=== PATIENT | male | born 1950 | race Caucasian/White ===

== ENCOUNTER 2016-10-14 21:29 | Inpatient (IN) | payer MEDICARE, MEDICAID ==
[~2016-10-14] VITALS: Ht 185.4 cm; Wt 54.2 kg
[2016-10-14 21:34] VITALS: BP 117/78; PULSE 105; RESP 17; O2SAT 98
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
[2016-10-14] MEDS ORDERED: 0.9% Sodium Chloride 1,000 ML IV ONE (22:00)
[2016-10-14 22:11] LABS: BASOPHILS % (AUTO) 0.2 % (0-3); EOSINOPHILS % (AUTO) 0.2 % (0-5); MONOCYTES % (AUTO) 9.2 % (4-12); Mean Corpuscular Hemoglobin 31.6 pg (27.0-35.0); Mean Corpuscular Volume 89.8 fL (81-100); Platelet Count 385 bil/L (150-400)
[2016-10-14 22:32] LABS: ERYTHROCYTE SEDIMENTATION RATE 4 mm/hr (0-30)
[2016-10-14 22:34] VITALS: BP 110/78; PULSE 92; RESP 15; O2SAT 95
[2016-10-14 22:50] LABS: TROPONIN T 0.029 ug/L (0.0-0.011)
[2016-10-14 23:05] LABS: INR 0.96 ratio
[2016-10-14 23:12] LABS: Magnesium 1.1 mg/dL (1.6-2.6)
[2016-10-14] MEDS ORDERED: Magnesium Sulf 4 Gm/100 mL H2O 4 GM in IV Premix 1 EACH IV ONE (23:15)
[2016-10-14] MEDS ORDERED: Ketorolac 15 mg/mL Inj ONE (23:34)
[2016-10-15] VITALS (12 sets, daily range): BP systolic 81–117; BP diastolic 50–80; PULSE 60–96; RESP 15–20; O2SAT 92–100
[2016-10-15] MEDS ORDERED: Ondansetron 2 mg/mL 2 mL Inj IVPUSH PRN (01:40)
[2016-10-15] MEDS ORDERED: Polyethylene Glycol (PEG) 17 Gm Powder PO PRN (01:40)
[2016-10-15] MEDS: 0.9% Sodium Chloride 1,000 ML IV SCH ×2 (02:01→07:21)
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
--- NOTE | 2016-10-15 02:26 | NUR ---
ADMIT; 66 year old thin pale male to room 1024 via gurney from e.r. with c/o increased weakness which has been causing him to not be able to walk= crawling on floor to bathroom. See admit screens.
--- NOTE | 2016-10-15 02:28 | NUR ---
MED REC NOT DONE; Son in law states will bring in a copy of pt's home meds in the am. (list is at home in pts [facility])
[2016-10-15] MEDS ORDERED: Glucose 40% Oral Gel 15 Gm Tube PO PRN (02:35)
[2016-10-15] MEDS ORDERED: Dextrose 10% 250 ML IV PRN (03:05)
--- NOTE | 2016-10-15 03:18 | NUR ---
GI swallow eval done per this rn and charge nurse. Pt passed. Eating sandwich at this time without problems. Need to change diet from general to soft general as pt has no teeth.
--- NOTE | 2016-10-15 04:53 | NUR ---
GI/ACTIVITY; moderate soft brown bm per bsc. Stool spec collected to send to the lab. One assist to the [facility]. Legs weak.
--- NOTE | 2016-10-15 06:22 | DRSVH ---
PROCEDURE: CT BRAIN WITHOUT CONTRAST ([id number]) INDICATIONS: 66-year-old male with generalized weakness. TECHNIQUE: Noncontrast 4.5 mm thick angled axial sections acquired from the foramen magnum to the vertex, with c oronal reformats. COMPARISON: None. FINDINGS: Preliminary interpretation rendered by [facility]. Image quality: Excellent. CSF spaces: Basal cisterns are patent. No extra-axial fluid collections. Ventricles are normal in size and shape. Brain: No midline shift. No intracranial masses or hemorrhage. There is mild periventricular white matter chronic small vessel ischemic change. There is scattered intracranial internal carotid artery atherosclerosis. Skull and face: Calvarium and visualized facial bones are intact, without suspicious lesions. Sinuses: Visualized sinuses and mastoids are clear. IMPRESSION: No acute intracranial abnormalities. Mild periventricular white matter chronic small vess el ischemic change. No significant discrepancy with preliminary [facility] report. Dictated by: David Rodriguez M.D. on 10/15/2016 at 6:19 Approved by: David Rodriguez M.D. on 10/15/2016 at 6:21
--- NOTE | 2016-10-15 06:33 | NUR ---
PAIN; pt c/o sore neck and knees. Dr. Bryant "lindsay paged" and orders noted.
[2016-10-15 07:58] LABS: BASOPHILS % (AUTO) 0.3 % (0-3); EOSINOPHILS % (AUTO) 0.4 % (0-5); MONOCYTES % (AUTO) 9.2 % (4-12); Mean Corpuscular Hemoglobin 31.5 pg (27.0-35.0); Mean Corpuscular Volume 89.8 fL (81-100); NEUTROPHILS % (AUTO) 62.1 % (40-74); Platelet Count 381 bil/L (150-400)
[2016-10-15] MEDS: Insulin LISPRO 300 Unit/3 mL Inj SUBQ SCH ×4 (08:00→23:35)
--- NOTE | 2016-10-15 08:18 | DRSVH ---
PROCEDURE: X-RAY CHEST ONE VIEW, PORTABLE ([id number]) INDICATIONS: 66 year-old male with shortness of breath. TECHNIQUE: One view of the chest was acquired. COMPARISON: [facility], CHEST 1VW (PORTABLE), 05/20/2011, 19:22. [facility], CHEST 2VW, 03/20/2011, 14:46. [facility], CHEST 2VW, 03/29/2007, 16:46. FINDINGS: Surgical changes and devices: None. Lungs and pleura: No pleural effusions or pneumothorax. Lungs are clear. Mediastinum: Mediastinal contours appear normal. Heart size is normal. Bones and chest wall: No suspicious bony lesions. Nonacute left third through fifth rib fractures a re again noted. Overlying soft tissues appear unremarkable. IMPRESSION: No acute cardiopulmonary disease. Nonacute lateral left third through fifth rib fractures as before. Dictated by: David Rodriguez M.D. on 10/15/2016 at 8:16 Approved by: David Rodriguez M.D. on 10/15/2016 at 8:17
[2016-10-15] MEDS: Heparin 5,000 Unit/mL Inj SUBQ SCH ×2 (08:41→17:17)
[2016-10-15] MEDS: Pancrelipase 5,000 Unit Capsule PO SCH ×3 (08:42→17:16)
[2016-10-15] MEDS: Pantoprazole 20 mg ER24 Tablet PO SCH (08:42)
[2016-10-15 08:44] LABS: Magnesium 2.2 mg/dL (1.6-2.6)
--- NOTE | 2016-10-15 10:15 | DRSVH ---
PROCEDURE: CT ABDOMEN AND PELVIS WITH CONTRAST ([id number]) INDICATIONS: 66 year-old male with malnutrition and chronic pancreatitis. TECHNIQUE: After the administration of oral and intravenous contrast, 5 mm thick sections acquired from the diap hragms to the symphysis. 5 mm thick coronal and sagittal reformats were performed. For radiation do se reduction, the following was used: automated exposure control, adjustment of mA and/or kV accordi ng to patient size. COMPARISON: None. FINDINGS: Image quality: Excellent. ABDOMEN: Lung bases: Lung bases are clear. Heart size is normal. Solid organs: Liver and spleen are normal in size and enhancement. Gallbladder wall thickness is no rmal. Biliary system is non-dilated. Pancreas enhances normally, with localized parenchymal calcifi cation within detail. No adrenal nodules. Kidneys are normal in size and enhancement, without hydro nephrosis. Peritoneum and bowel: Stomach, small bowel, and colon loops are normal in caliber and wall thickness . The stomach is distended with ingested food material. There is oral contrast throughout nondistend ed small bowel loops, as well as the proximal colon. There is stool throughout the colon. No free flu id or air. Nodes and vessels: No retroperitoneal or mesenteric adenopathy. Aorta and inferior vena cava are no rmal in caliber, with aortoiliac atherosclerosis. Miscellaneous: No ventral hernias. PELVIS: Genitourinary: Bladder wall thickness is normal. Prostate gland is normal in overall size. Miscellaneous: No inguinal hernias or adenopathy. Bones: No suspicious bony lesions. No vertebral body compression fractures. Sagittal images demons trate nonacute healed inferior sacral fracture. There is multilevel lumbar spine disc degeneration, a s well as mild scoliosis. IMPRESSION: 1. No acute abnormalities of the abdomen or pelvis. 2. Findings consistent with chronic pancreatitis within the pancreatic tail. Dictated by: David Rodriguez M.D. on 10/15/2016 at 10:06 Approved by: David Rodriguez M.D. on 10/15/2016 at 10:13
[2016-10-15] MEDS ORDERED: 0.9% Sodium Chloride 1,000 ML IV ONE (10:55)
[2016-10-15] MEDS: Dextrose 5% 0.9% NaCl 1,000 ML IV SCH ×2 (11:12→21:38)
--- NOTE | 2016-10-15 12:12 | NUR ---
KORIN explained. Pt does not wish to sign. Copy of unsigned LANGLEY placed in chart. Copy of LANGLEY and Medicare self administered medication information given to pt. Addendum: 10/15/16 at 1304 by RAMIREZ REYES SS Patient's son-in law, Howard Desouza, here KORIN explained to him also. All questions answered.
[2016-10-15] MEDS ORDERED: LIPA1CAP5 PO (13:14)
[2016-10-15] MEDS ORDERED: CHOL200047 PO (13:14)
[2016-10-15] MEDS ORDERED: LOVA40TA PO (13:14)
[2016-10-15] MEDS ORDERED: NORT75CA PO (13:14)
[2016-10-15] MEDS ORDERED: ALPR0.5T8 PO (13:14)
[2016-10-15] MEDS ORDERED: LEVO150T5 PO (13:14)
[2016-10-15] MEDS ORDERED: FERR-83 PO (13:14)
[2016-10-15] MEDS ORDERED: METF500T4 PO (13:14)
[2016-10-15] MEDS ORDERED: BUPR150T12 PO (13:14)
[2016-10-15] MEDS ORDERED: MULT-1018 PO (13:14)
[2016-10-15] MEDS ORDERED: OMEP20CA11 PO (13:14)
[2016-10-15] MEDS ORDERED: MIRT45TA5 PO (13:14)
--- NOTE | 2016-10-15 13:40 | NUR ---
Evaluation completed. Please go to "Notes" then click on "Assessments and Notes" (bottom left corner of screen). Then select appropriate discipline tab on top of screen.
--- NOTE | 2016-10-15 18:21 | NUR ---
Low BP this am patient's SBP was in the 80's and reported feeling lightheaded at rest. Dr Delgadillo notified and a 1 liter NS bolus was ordered. patient tolerated Bolus well and SBP improved. patient very unsteady on feet and has been attempting to get to BSC on own, without using call light despite re-education. Moriah alarm in place for safety. continue to monitor and encourage using call light for assistance.
[2016-10-15] MEDS: Alum-Mag Hydrox-Simeth 30 mL Suspension PO PRN (21:38)
[2016-10-16] VITALS (8 sets, daily range): BP systolic 114–125; BP diastolic 72–82; PULSE 66–87; RESP 16–18; O2SAT 97–100
[2016-10-16] MEDS: Heparin 5,000 Unit/mL Inj SUBQ SCH ×3 (00:22→17:20)
[2016-10-16] MEDS: 0.9% Sodium Chloride 1,000 ML IV SCH ×3 (00:31→17:06)
--- NOTE | 2016-10-16 05:04 | NUR ---
Mobility / GI Pt is moving with improved strength to BSC. C/o pain and lack of strength in knees, L>R with swelling and tenderness; Diclofenac gel applied for relief. Eating well, continues to have loose stools. Hourly rounding ongoing.
[2016-10-16 05:55] LABS: Hemoglobin A1C 7.8 % (4.8-5.6)
[2016-10-16 06:13] LABS: APPEARANCE,URINE CLEAR (CLEAR,HAZY); COLOR,URINE STRAW (YELLOW); OCCULT BLOOD,URINE NEGATIVE (NEGATIVE); UROBILINOGEN,URINE NORMAL (NORMAL)
[2016-10-16 06:21] LABS: Magnesium 1.9 mg/dL (1.6-2.6)
[2016-10-16] MEDS: Dextrose 5% 0.9% NaCl 1,000 ML IV SCH ×3 (06:26→18:38)
[2016-10-16] MEDS: Insulin LISPRO 300 Unit/3 mL Inj SUBQ SCH ×4 (07:03→22:00)
[2016-10-16] MEDS: Pancrelipase 5,000 Unit Capsule PO SCH ×4 (08:14→23:25)
[2016-10-16] MEDS: Pantoprazole 20 mg ER24 Tablet PO SCH (08:14)
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
--- NOTE | 2016-10-16 18:31 | NUR ---
Fall prevention Pt agrees to use call light prior to getting OOB. Moriah alarm in place and turned on. Very unsteady on feet. 1 person assist to BSC with frequent small solid stools.
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
[2016-10-17 00:29] VITALS: BP 123/81; PULSE 84; RESP 18; O2SAT 99
[2016-10-17] MEDS: Heparin 5,000 Unit/mL Inj SUBQ SCH ×3 (00:30→17:23)
[2016-10-17 03:12] LABS: Vitamin B12 877 pg/mL (211-946)
[2016-10-17] MEDS: 0.9% Sodium Chloride 1,000 ML IV SCH ×3 (03:39→23:39)
[2016-10-17 06:00] VITALS: BP 137/87; PULSE 81; RESP 16; O2SAT 98
[2016-10-17 06:32] LABS: BASOPHILS % (AUTO) 0.4 % (0-3); EOSINOPHILS % (AUTO) 0.8 % (0-5); Mean Corpuscular Hemoglobin 31.5 pg (27.0-35.0); Mean Corpuscular Volume 92.5 fL (81-100); Platelet Count 390 bil/L (150-400)
--- NOTE | 2016-10-17 06:43 | NUR ---
GI Good PO intake, asks frequently for snacks overnight. Upset we do not have chocolate bars. Several small formed BM without visible blood. 1 person assist to commode. gait unsteady.
[2016-10-17 07:08] LABS: Magnesium 1.5 mg/dL (1.6-2.6); Phosphorus 2.3 mg/dL (2.5-4.9)
[2016-10-17] MEDS: Insulin LISPRO 300 Unit/3 mL Inj SUBQ SCH ×4 (07:36→20:37)
[2016-10-17] MEDS: Pantoprazole 20 mg ER24 Tablet PO SCH (07:58)
[2016-10-17] MEDS: Pancrelipase 5,000 Unit Capsule PO SCH ×3 (07:59→17:23)
[2016-10-17 08:08] VITALS: BP 129/84; PULSE 78; RESP 18; O2SAT 99
[2016-10-17] MEDS ORDERED: FERR-83 PO (08:27)
[2016-10-17] MEDS ORDERED: Pancrelipase PO (08:27)
--- NOTE | 2016-10-17 08:55 | NUR ---
Evaluation completed. Please go to "Notes" then click on "Assessments and Notes" (bottom left corner of screen). Then select appropriate discipline tab on top of screen.
--- NOTE | 2016-10-17 09:26 | PCM.DIMED ---
Lito Delgadillo MD 10/17/16 0926: Discharge Instructions Date of Service Oct 17, 2016 Dates of Hospitalization Oct 15, 2016 at 01:39 Discharge Diagnosis Discharge Diagnosis acute dx acute on chronic generalized Weakness likely mainly from malnutrition and deconditioning, ongoing diarrhea, possibility of underlying malignancy Chronic diarrhea likely due to chronic pancreatitis, severe protein caloric Malnutrition BMI 15.5 Chronic pancreatitis secondary to chronic alcohol use Hypomagnesemia with chronic diarrhea chronic dx Normocytic, normochromic anemia Hypothyroidism Non-insulin using diabetes mellitus, History of chronic alcohol use disorder Medication Instructions Additional med instructions Please continue to take pancreatic enzyme three times per day with meals Patient Instructions Patient Instructions You were hospitalized with severe weakness and malnutrition and chronic diarrhea. It's likely that you are loosing weight from chronic pancreatitis although malignancy was not entirely ruled out. Your condition improved with increased food intake. Your diarrhea is resolving. Please follow up with you primary doctor in a week and in his office in 2-4weeks for possible colonoscopy and Endoscopy for further evaluation. Pleas note that your condition is likely the result of chronic alcohol drinking , it is strongly advised to avoid alcohol to prevent further damages on your pancreas and other organs Please follow harness inspector recommendation: High kcal/protein nutrition therapy and increasing number of meals throughout day. Discussed having snacks at bedside, including peanut butter/cracker, cracker/cheese. Pt agreeable. Reviewed high kcal/protein food options. Discussed food choices and provided pt with hdts and contact information if questions arise. Follow-up Provider: Shahram Blake MD Follow-up with PCP in: 1 week Vipin Oconnell MD 10/18/16 1626: Lito Delgadillo MD Oct 17, 2016 09:26 Vipin Oconnell MD Oct 18, 2016 16:26
--- NOTE | 2016-10-17 12:22 | NUR ---
Social Work- Initial Assessment Data: See Initial Assessment and Advance Directive Intervention for additional information. Pt discussed in rounds. Pt is medically ready for d/c from the hospital, PT is recommending SNF at this time. Pt is extremely weak. SNF order received. Pt's observation status may be a barrier to d/c to SNF. Pt is a 66 y/o admitted 10/15/16 under observation status for general weakness, hypomagnesemia. Pt's insurance is [facility] and [facility]. Pt's PCP is Shahram Blake MD. Pt's readmit risk score is 2. SW met with pt at bedside regarding discharge plan, SW role explained. SW also spoke with Maegan Melgar and pt's family Rhiannon and Howard Desouza [phone] by phone regarding d/c plan. The following information was provided: Pt has a history of TBI, anxiety, depression. Pt's capacity for self-care assessed. Pt resides in [place] in a home with his spouse. Pt's daughter in law Maegan Melgar stays with pt and his most nights to assist pt's with her medications. Pt's Leslie and daughter in law Maegan are both disabled with complex medical needs. Leslie receives JIN services but pt does not. Leslie's caregivers are not allowed to assist pt in the home. Leslie and Maegan are not able to care for pt at home in his current level of weakness. Until a few weeks ago pt was able to make himself simple meals and use the bathroom. Prior to admission pt was crawling through his home due to weakness. SW spoke with pt at bedside regarding his alcohol use, pt denies any current alcohol use but did acknowledge that he has a history of etoh abuse. Pt uses no DME at baseline but has a cane and walker available for use. Per Maegan and Rhiannon, pt is resistant to using his walker at home and this has contributed to his falling. SW spoke with pt about using his walker for safety and pt was adamantly in agreement. Pt confirms that he has a cane and walker at home. Pt has no history with HH services. Pt has no history with SNF services, though his family member has been to [facility]. SW explained SNF recommendation and order. SW explained that pt's insurance may be a barrier to this. Pt stated understanding and stated that he would not be able to go SNF if his insurance did not pay for it. Family confirmed this. SNF CHOICE LIST PROVIDED. Pt and family are all agreeable that [facility] is pt's first choice due to location. Also included in choice list are [facility] and [facility]. Pt is agreeable that if SNF is not possible he would want HH services. Pt is homebound due to profound weakness. Pt has no DPOA on file and pt declined information. SW provided Discharge planning Checklist and requested that pt contact [employer] if additional needs identified. SW provided phone number and plan on whiteboard. Pt agreeable. SW will continue to follow. Assessment: Pt for whom SNF is medically indicated. Plan: Referral to [facility], [facility], and [facility]. Pt is medically stable for d/c today. SW awaiting acceptance from a facility. Pt and family all updated and agreeable to plan. SW will continue to follow. LUANNE Alonzo Addendum: 10/17/16 at 1226 by SUSANNA BERTRAND Amended: Links added. Addendum: 10/17/16 at 1230 by SUSANNA BERTRAND Additional Information--- Pt is currently connected with [employer]. They come to the home regularly. Pt and pt's family reports that he often dislikes the meals provided. Pt's 's JIN caregiver goes grocery shopping for pt's as part of her caregiving responsibilities. Pt states that he has access to this food. Pt denies cooking often and doesn't know how to cook. BROOKS spoke with pt and family regarding potentially engaging JIN for pt in the future, given pt's extreme weakness and also his desire to remain in the home. Family is agreeable that this may be necessary, though in the past they have declined JIN caregiving for pt citing financial concerns. The accuracy of this is unclear. BROOKS completed and faxed expedited JIN referral to assist pt in future care planning. Audrey oHlden [employer]
--- NOTE | 2016-10-17 12:41 | NUR ---
Gave access and faxed facesheet to [facility] per CHAIRMAN and MD orders Addendum: 10/17/16 at 1541 by NEAL SAAB CM [facility] is unable to accept patient at this time due to high [place] Census [facility] can no accept patient at this time due to high [place] census
[2016-10-17 12:53] VITALS: BP 128/86; PULSE 86; RESP 18; O2SAT 100
[2016-10-17] MEDS: Dextrose 5% 0.9% NaCl 1,000 ML IV SCH ×2 (12:55→22:55)
[2016-10-17] MEDS ORDERED: ALPRAZolam 0.5 mg Tablet PO PRN (13:20)
--- NOTE | 2016-10-17 14:51 | NUR ---
Social Work- Update Per orlando Hanna, [facility] is unable to accept pt at this time. SW received T/C from Dyana at [facility]/ [facility] regarding pt's JIN referral. Dyana states that pt has not completed [facility] LTC application and this will be required prior to initiation of JIN. Dyana informed pt's daughter in law Maegan of this as well. Dyana states that [facility] SW will be able to assess pt at home when he d/c, SW to update her when pt discharges. SW will continue to follow. Audrey Holden MSW
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
--- NOTE | 2016-10-17 16:01 | NUR ---
Social Work- Continued D/C Planning Data: EMR reviewed. Pt is on day 2 of hospitalization. PT has seen pt again today, continues to recommend SNF. notified that pt has no SNF placement at this time. BROOKS spoke with Maegan by telephone again regarding d/c plan. Maegan feels that pt is not safe to return home at this time due to weakness and the fact that pt has no care at home. BROOKS explained that pt has been medically cleared by MD for d/c and that there is no facility accepting at this time. Maegan would like to appeal d/c. BROOKS explained that this is not possible under observation status. BROOKS explained that if pt stays another night he will likely have an out of pocket cost. Maegan is unhappy but understands and feels strongly that pt should receive SNF level of care. BROOKS also explained [facility] longterm care application and Maegan confirms that she will follow up with pt's rn field case manager at [facility] regarding completing this. Pt updated at bedside and JIN information provided to pt at bedside as well. Pt screened in for APS report, report made by phone. SW will continue to follow. Assessment: Pt who medically requires SNF level of care. Plan: COLD ROLL CATCHER continues to look for SNF placement for pt. Pt's observation status is a barrier to placement at this time. HCS to follow up with family regarding JIN assessment. Pt and family to follow up regarding completing [facility] intermodal owner operator truck driver care application to facilitate JIN caregiving in the home. SW will continue to follow. LUANNE Alonzo
--- NOTE | 2016-10-17 18:36 | NUR ---
Activity/GI Frequently up to BSC or BR with FWW and 1 person assist. Becoming slightly more steady on feet. Ongoing education r/t falls risk. Pt does agree to use call light and wait for nursing before getting OOB, but can be impulsive and forgetful. [place] alarm on at all time. Tolerates diet, no diarrhea. Formed stools.
[2016-10-17 19:34] VITALS: BP 150/90; PULSE 91; RESP 18; O2SAT 99
[2016-10-17] MEDS: buPROPion SR 150 mg ER12 Tablet PO SCH (20:27)
[2016-10-18] VITALS (7 sets, daily range): BP systolic 108–162; BP diastolic 82–90; PULSE 77–125; RESP 18–20; O2SAT 98–99
[2016-10-18] MEDS: Heparin 5,000 Unit/mL Inj SUBQ SCH ×3 (01:07→16:45)
--- NOTE | 2016-10-18 04:00 | NUR ---
activity pt has been up to bathroom SBA with FWW. he is a little unsteady and stated to nurse that he knew he was unsteady and needed to wait for assistance. he has remembered to use his call light this shift. pt has has 2 loose stools this shift. he denies any N/V or abdominal discomfort. BG was 226 at HS and 180 at 0300. pt told nurse that he had macaroni, ice cream and teddy food cake for dinner. nurse provided teaching on diabetic diet. care continues.
[2016-10-18] MEDS: Insulin LISPRO 300 Unit/3 mL Inj SUBQ SCH ×4 (08:00→22:23)
[2016-10-18] MEDS: Pantoprazole 20 mg ER24 Tablet PO SCH (08:11)
[2016-10-18] MEDS: Pancrelipase 5,000 Unit Capsule PO SCH ×3 (08:14→17:41)
--- NOTE | 2016-10-18 08:25 | NUR ---
SHELTER TRANSFER FOLLOW UP : [facility] is over census for [facility] and they are unable to accept patient at this time. Tatianna Piedra field education coordinator is now reviewing and working on if they have a bed. Updated GALLERY HOST Addendum: 10/18/16 at 0924 by NEAL SAAB [facility] with Shahram Blake to follow and there will need to be a MD to MD phone call [phone]. Will follow up once discharge orders are in arrange transportation. Updated GALLERY HOST
[2016-10-18] MEDS ORDERED: Pantoprazole 40 mg ER24 Tablet PO SCH (08:30)
[2016-10-18] MEDS: Dextrose 5% 0.9% NaCl 1,000 ML IV SCH ×2 (08:55→18:55)
[2016-10-18] MEDS: 0.9% Sodium Chloride 1,000 ML IV SCH (09:05)
[2016-10-18] MEDS: buPROPion SR 150 mg ER12 Tablet PO SCH ×2 (10:52→20:28)
--- NOTE | 2016-10-18 13:10 | NUR ---
Social Work- Readiness for D/C Data: EMR reviewed. Pt discussed in multidisciplinary rounds. Pt is medically ready for d/c. T/C from Tatianna, admissions at [facility], regarding pt. [facility] has accepted pt with Dr. Blake to follow. Doc to Doc is required prior to admission at [facility]. provided with contact number. CATARINA created packet and WIRE STITCHER MACHINE will fax packet when available. SW updated pt at bedside regarding d/c plan. Pt is agreeable. T/C from Howard Pelsor regarding discharge plan, Howard is agreeable. T/C to Maegan regarding d/c plan, Maegan is agreeable to plan. Pt to d/c to [facility], facility to transport. SW will continue to follow. Assessment: Pt for whom SNF is medically necessary Plan: Pt to d/c to [facility] with Hayden to follow, facility to transport. Pt/family, [facility], and RN all updated and agreeable to plan. SW will continue to follow. Audrey Holden, WIRE STITCHER MACHINE
[2016-10-18] MEDS ORDERED: ALPR0.5T8 PO (14:17)
--- NOTE | 2016-10-18 15:11 | NUR ---
Social Work- Discharge Data: Pt is medically ready for d/c. [facility] accepted pt with Dr. Blake to follow. Packet and orders faxed to [facility]. Facility coordinated transport at 1630/1700. SW updated pt and family regarding d/c plan. RN, UC, pt/family, and [facility] all updated and agreeable to plan. Assessment: Pt for whom SNF is medically necessary Plan: Pt to d/c to [facility] with Hay[facility] to follow, transport at 1630/1700.RN, UC, pt/family, and [facility] all updated and agreeable to plan. LUANNE Alonzo Addendum: 10/18/16 at [employer] by SUSANNA PEREIRA SW notified by that pt's d/c has been cancelled. Pt, [facility] and pt's family updated. LUANNE Alonzo
--- NOTE | 2016-10-18 15:33 | NUR ---
Pt's Assigned APS Grain Blender is Raquel Rojo, Audrey Holden, INDUSTRIAL SEWER
[2016-10-18] MEDS ORDERED: METO25TA6 PO (16:24)
[2016-10-18] MEDS ORDERED: Magnesium Sulf 4 Gm/100 mL H2O 4 GM in IV Premix 1 EACH IV ONE (16:30)
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
[2016-10-18] MEDS: Alum-Mag Hydrox-Simeth 30 mL Suspension PO PRN (17:41)
--- NOTE | 2016-10-18 18:06 | NUR ---
food intake and attempted d/c pt makes very poor food choices, he eats a lot of carbs and orders many things mulitple times off the menu. attempted to educate pt about diet but he is resistant to education. pt was set to d/c to [facility] this afternoon, Mg was 1.4 and pt required IV Mg. D/c cancelled
[2016-10-19] MEDS: Heparin 5,000 Unit/mL Inj SUBQ SCH ×2 (00:36→08:48)
[2016-10-19] MEDS: Dextrose 5% 0.9% NaCl 1,000 ML IV SCH ×2 (04:55→13:14)
[2016-10-19 05:45] VITALS: BP 154/93; PULSE 65; RESP 16; O2SAT 99
--- NOTE | 2016-10-19 05:59 | NUR ---
GI/Blood Sugar Pt is alert and oriented x3. No decreased in LOC noted. Took all scheduled medication this shift with no issue. Denies N/V/D, pain, resp distress and/or SOB. Had a medium soft stool and stated "you better tell them is noted that diarrhea". Blood sugar 291 & 177, insulin sliding scaled administered per order with no s/s of hypo/hyperglycemia noted. Ate some snacks per request. Will continue to monitor.
[2016-10-19] MEDS: Insulin LISPRO 300 Unit/3 mL Inj SUBQ SCH ×2 (08:00→12:23)
[2016-10-19] MEDS: buPROPion SR 150 mg ER12 Tablet PO SCH (08:48)
[2016-10-19] MEDS: Pancrelipase 5,000 Unit Capsule PO SCH ×2 (08:48→12:23)
[2016-10-19] MEDS: Pantoprazole 20 mg ER24 Tablet PO SCH (08:49)
[2016-10-19 09:35] LABS: Magnesium 2.2 mg/dL (1.6-2.6)
[2016-10-19 13:09] VITALS: BP 117/77; PULSE 77; RESP 18; O2SAT 99
[2016-10-19] MEDS ORDERED: MAGN500C4 PO (13:55)
--- NOTE | 2016-10-19 15:07 | NUR ---
Social Work- Discharge Data: EMR reviewed. Pt discussed in multidisciplinary rounds, pt to d/c today pending magnesium levels and heart rate. SW called [facility] today and they are agreeable to accepting pt today with Dr. Blake to follow. After rounds, hospitalist updated [employer] that pt is medically stable for d/c. Facility updated. Doc to Doc completed. Packet and orders have been faxed to [facility]. Facility coordinated transport for 1530. SW updated pt and family regarding d/c plan. RN, UC, pt/family, and [facility] all updated and agreeable to plan. Assessment: Pt for whom SNF is medically necessary Plan: Pt to d/c to [facility] with [facility] to follow, transport at 1630/1700.RN, UC, pt/family, and [facility] all updated and agreeable to plan. Audrey Holden, [employer]
--- NOTE | 2016-10-19 15:49 | NUR ---
discharge Pt d/c to [facility]. Report called to Demetrice at facility. Pt left with all belongings including cell phone and clothes. Pt had one BM this morning, not diarrhea. soft formed stool. continues to eat a lot of food without alerting staff to check BS prior to eating. BS at lunch was elevated and covered with 2 units insulin. f/u care will be managed by [facility].
--- NOTE | 2016-10-23 11:45 | NUR ---
Social Work- After Visit Phone Call T/C from Raquel Rojo, , [employer] [employer], requesting additional clinical information. Information faxed to [phone]. No additional needs. LUANNE Alonzo
== END 2016-10-19 15:35 | DRG 640 ==
LOC: SED 21:29 → OSC 10-15 01:39 → OBSVTOIN 10-15 01:39 → INTOOBSV 10-15 01:39
PROVIDERS: ADMIT Hospitalist; ATTEND Internal Medicine
DX: E83.42 Hypomagnesemia (principal); E43 Unspecified severe protein-calorie malnutrition; Z68.1 Body mass index [BMI] 19.9 or less, adult; K86.0 Alcohol-induced chronic pancreatitis; R64 Cachexia; F10.10 Alcohol abuse, uncomplicated; Z87.820 Personal history of traumatic brain injury; Z87.891 Personal history of nicotine dependence; D64.9 Anemia, unspecified; E03.9 Hypothyroidism, unspecified; E11.9 Type 2 diabetes mellitus without complications; K52.9 Noninfective gastroenteritis and colitis, unspecified; Z79.84 Long term (current) use of oral hypoglycemic drugs